=== PATIENT | female | born 1970 ===

== ENCOUNTER 2017-11-02 06:20 | Observation (INO) | payer BC, MEDICAID ==
[2017-10-14 11:45] VITALS: BMI 28.3
[2017-11-02] MEDS ORDERED: Midazolam 2 MG/2 ML VIAL ONE (07:38)
[2017-11-02] MEDS ORDERED: Propofol 10 mg/ml Inj (20 ML) ONE ×3 (07:38→09:04)
[2017-11-02] MEDS ORDERED: ceFAZolin IV 1 gm in Dextrose 0 GM/0 ML BAG IVPB ONE (07:41)
[2017-11-02] MEDS ORDERED: Thrombin Topical 5,000 Int Units Spray Kit ONE (07:42)
[2017-11-02] MEDS ORDERED: Bupivacaine HCl 0.25% PF (10 ml) Inj ONE (07:42)
[2017-11-02] MEDS ORDERED: Lidocaine 2% w Epi 1:100,000 Inj IJ ONE (07:42)
[2017-11-02] MEDS ORDERED: Lactated Ringer's 1,000 ML IV ONE ×2 (07:45→10:28)
[2017-11-02] MEDS ORDERED: ceFAZolin IV 2 gm in Dextrose 2 GM/50 ML BAG IVPB ONE (07:53)
[2017-11-02] MEDS ORDERED: Absorbable Gelatin Sponge Size 100 ONE (08:23)
[2017-11-02] MEDS ORDERED: Absorbable Gelatin Sponge Size 12-7 ONE (09:34)
[2017-11-02] MEDS ORDERED: Morphine 4 MG/ML VIAL ONE ×2 (09:37→09:45)
[2017-11-02] MEDS ORDERED: Succinylcholine Chloride 20 mg/ml Syr (5 ml) IV ONE (09:51)
[2017-11-02] MEDS ORDERED: Oxycodone/Acetaminophen 5/325 mg Tab PO PRN (11:04)
--- NOTE | 2017-11-02 11:12 | PCM.SURG1 ---
Surgeon's Initial Post Op Note - Surgeon's Notes Surgeon: Kenroy River Expedition Guide: PGY4 Type of Anesthesia: General Endo, Local Pre-Operative Diagnosis: Thyroid nodule Operative Findings: see op note Post-Operative Diagnosis: Thyroid nodule Operation Performed: 1. Completion thyroidectomy. 2. Revision of scar Specimen/Specimens Removed: 1. Thyroid. 2. Scar Estimated Blood Loss: EBL {In ML}: 10 Blood Products Given: N/A Drains Used: Lorenzo Post-Op Condition: Good Date of Surgery/Procedure: 11/02/17 Time of Surgery/Procedure: 07:45
[2017-11-02] MEDS ORDERED: ceFAZolin IV 1 gm in Dextrose 1 GM/50 ML BAG IVPB SCH (11:15)
[2017-11-02] MEDS: ceFAZolin IV 1 gm in Dextrose 1 GM/50 ML BAG IVPB SCH (18:00)
--- NOTE | 2017-11-02 21:09 | OP ---
PROCEDURE DATE: 11/02/2017 PREOPERATIVE DIAGNOSES: Right thyroid nodules, status post left hemithyroidectomy. POSTOPERATIVE DIAGNOSES: Right thyroid nodules, status post left hemithyroidectomy. PROCEDURE DONE: 1. Completion right thyroid lobectomy. 2. Revision of scar, approximately 8 x 2 cm size. 3. Intraoperative nerve monitoring. SURGEON: Procedure was done by Landry gallagher MD. LAY OUT INSPECTOR: Ej Kim DO, PGY-4 resident and MILLI Bojorquez. TYPE OF ANESTHESIA: General endotracheal tube anesthesia. ESTIMATED BLOOD LOSS: Around 10 mL. DRAIN: A 15-Lao Lorenzo drain was placed. COMPLICATIONS: None. INTRAOPERATIVE FINDINGS: The patient had multinodular right thyroid lobe and the left side of the thyroid bed was explored and there was no thyroid nodule identified in the previously operated place superficially. DESCRIPTION OF PROCEDURE: On the intraoperative steps, this 47-year-old female was diagnosed with thyroid nodule of right thyroid lobe and the patient was consented for the completion thyroidectomy with intraoperative nerve monitoring. The patient was brought to the OR, placed supine on the operating table. After the induction of the anesthesia, the neck and upper chest were prepped and draped in the usual sterile fashion. The elliptical incision was made surrounding the previous incision and the scar was revised and it was sent off the table for the pathology. Now, the platysma flap was created upper and lower superiorly up to the thyroid notch and inferiorly up to the sternal notch and the strap muscles were divided in the midline and first the strap muscles were retracted laterally. The superior pole dissection was done and the cricothyroid muscles and the superior pole was dissected and superior pole was taken down in 2 different pedicles and the thyroid lobe was mobilized medially and the middle thyroid vein was divided and the inferior thyroid artery identified and the recurrent laryngeal nerve was also identified. The superior and inferior parathyroid gland was also identified and intraoperative nerve monitoring was done. The inferior thyroid vein was divided and inferior thyroid artery was divided after recurrent laryngeal nerve identification and now the thyroid was completely excised from the underlying trachea and it was sent off the table for the pathology. There was proper hemostasis in each and every part of the procedure. The 15-Lao Lorenzo drain was placed. Strap muscles were approximated and the platysma was approximated with 2-0 Vicryl, skin with 4-0 Monocryl and dry sterile dressing was applied. The patient tolerated the procedure well. Count of the instrument and gauze was correct. There was no apparent complication. Landry Jasmine MD
[2017-11-02] MEDS ORDERED: (Novolin R) Insulin Human Regular 100 units/ml vial IV ONE (21:59)
[2017-11-03] MEDS: ceFAZolin IV 1 gm in Dextrose 1 GM/50 ML BAG IVPB SCH (01:06)
[2017-11-03 01:49] VITALS: O2SAT 97
[2017-11-03 06:50] LABS: ALB/GLOB RATIO 1.2 (1.0-2.1); ALBUMIN 3.8 g/dL (3.5-5.0); ALT/SGPT 41 U/L (9-52); AST/SGOT 27 U/L (14-36); BLOOD UREA NITROGEN 11 mg/dL (7-17); CALCIUM 8.5 mg/dl (8.6-10.4); GFR AFRICAN-AMERICAN > 60; GFR NON-AFRICAN AMERICAN > 60
[2017-11-03 07:25] LABS: BASO % 0.1 % (0.0-2.0); HEMOGLOBIN 12.4 g/dL (11.0-16.0); LYMPH # 1.7 K/uL (1.0-4.3); LYMPH % 14.6 % (20.0-40.0); MEAN CELL VOLUME 84.8 fL (81.0-99.0); MEAN CORPUSCULAR HEMOGLOBIN 29.5 pg (27.0-31.0); MEAN CORPUSCULAR HGB CONC 34.8 g/dL (33.0-37.0); MEAN PLATELET VOLUME 8.2 fL (7.2-11.7); MONO # 0.7 K/uL (0.0-0.8); MONO % 6.5 % (0.0-10.0); NEUT # 9.1 K/uL (1.8-7.0); NEUT % 78.8 % (50.0-75.0); NRBC % 0.1 % (0.0-2.0); RBC 4.19 Mil/uL (3.80-5.20); RED CELL DISTRIBUTION WIDTH 13.8 % (11.5-14.5)
[2017-11-03] MEDS: (Novolin R) Insulin Human Regular 100 units/ml vial SC SCH ×2 (07:37→11:35)
[2017-11-03 07:46] LABS: WHITE BLOOD COUNT 11.5 K/uL (4.8-10.8)
[2017-11-03 08:26] VITALS: BP 119/68; PULSE 60; RESP 18; TEMP 95.8
--- NOTE | 2017-11-03 09:53 | CP.PCM.DIS ---
Provider - Provider Date of Admission: 11/02/17 06:20 Attending physician: Landry Jasmine MD Time Spent in preparation of Discharge (in minutes): 45 Hospital Course - Lab Results Lab Results: Most Recent Lab Values WBC 11.5 K/uL (4.8-10.8) H D 11/03/17 06:11 RBC 4.19 Mil/uL (3.80-5.20) 11/03/17 06:11 Hgb 12.4 g/dL (11.0-16.0) 11/03/17 06:11 Hct 35.5 % (34.0-47.0) 11/03/17 06:11 MCV 84.8 fL (81.0-99.0) 11/03/17 06:11 MCH 29.5 pg (27.0-31.0) 11/03/17 06:11 MCHC 34.8 g/dL (33.0-37.0) 11/03/17 06:11 RDW 13.8 % (11.5-14.5) 11/03/17 06:11 Plt Count 271 K/uL (130-400) 11/03/17 06:11 MPV 8.2 fL (7.2-11.7) 11/03/17 06:11 Neut % (Auto) 78.8 % (50.0-75.0) H 11/03/17 06:11 Lymph % (Auto) 14.6 % (20.0-40.0) L 11/03/17 06:11 Gosper % (Auto) 6.5 % (0.0-10.0) 11/03/17 06:11 Eos % (Auto) 0.0 % (0.0-4.0) 11/03/17 06:11 Baso % (Auto) 0.1 % (0.0-2.0) 11/03/17 06:11 Neut # 9.1 K/uL (1.8-7.0) H 11/03/17 06:11 Lymph # 1.7 K/uL (1.0-4.3) 11/03/17 06:11 Gosper # 0.7 K/uL (0.0-0.8) 11/03/17 06:11 Eos # 0.0 K/uL (0.0-0.7) 11/03/17 06:11 Baso # 0.0 K/uL (0.0-0.2) 11/03/17 06:11 Sodium 135 mmol/L (132-148) 11/03/17 06:11 Potassium 3.6 mmol/L (3.6-5.2) 11/03/17 06:11 Chloride 97 mmol/L (98-107) L 11/03/17 06:11 Carbon Dioxide 29 mmol/L (22-30) 11/03/17 06:11 Anion Gap 13 (10-20) 11/03/17 06:11 BUN 11 mg/dL (7-17) 11/03/17 06:11 Creatinine 0.6 mg/dL (0.7-1.2) L 11/03/17 06:11 Est GFR ( Amer) > 60 11/03/17 06:11 Est GFR (Non-Af Amer) > 60 11/03/17 06:11 POC Glucose (mg/dL) 92 mg/dL (65-110) 11/03/17 06:17 Random Glucose 103 mg/dL (65-105) 11/03/17 06:11 Calcium 8.5 mg/dl (8.6-10.4) L 11/03/17 06:11 Total Bilirubin 0.8 mg/dL (0.2-1.3) 11/03/17 06:11 AST 27 U/L (14-36) 11/03/17 06:11 ALT 41 U/L (9-52) 11/03/17 06:11 Alkaline Phosphatase 56 U/L (38-126) 11/03/17 06:11 Total Protein 7.0 g/dL (6.3-8.3) 11/03/17 06:11 Albumin 3.8 g/dL (3.5-5.0) 11/03/17 06:11 Globulin 3.1 gm/dL (2.2-3.9) 11/03/17 06:11 Albumin/Globulin Ratio 1.2 (1.0-2.1) 11/03/17 06:11 Blood Type B POSITIVE 11/02/17 07:00 Antibody Screen Negative 11/02/17 07:00 - Hospital Course Hospital Course: 47 F w HO thyroid nodule came to SDS for thyroidectomy. Pt tolerated the procedure well. Following day, pain controlled. No bleeding noted. Drain output was minimal. Denies F/C/N/V/D/CP/SOB/dizziness. Labs were wnl. Pt is cleared to go home. Discharge Exam - Head Exam Head Exam: ATRAUMATIC, NORMAL INSPECTION, NORMOCEPHALIC - Eye Exam Eye Exam: EOMI, Normal appearance, PERRL Pupil Exam: NORMAL ACCOMODATION, PERRL - ENT Exam ENT Exam: Mucous Membranes Moist - Neck Exam Neck exam: Tenderness Additional comments: Dressing C/D/I. Drain in place: 10cc SS. - Respiratory Exam Respiratory Exam: UNREMARKABLE - Cardiovascular Exam Cardiovascular Exam: REGULAR RHYTHM - GI/Abdominal Exam GI & Abdominal Exam: Normal Bowel Sounds - Back Exam Back exam: NORMAL INSPECTION - Neurological Exam Neurological exam: Alert, CN II-XII Intact, Normal Gait, Oriented x3, Reflexes Normal - Psychiatric Exam Psychiatric exam: Normal Affect, Normal Mood - Skin Skin Exam: Dry, Intact, Normal Color, Warm Discharge Plan - Follow Up Plan Condition: GOOD Disposition: HOME/ ROUTINE Instructions: Total Thyroidectomy (DC) Additional Instructions: follow up at Dr. Jasmine's office in 1-2 weeks. Ok to shower in 2 days. Resume regular diet.
[2017-11-04] MEDS ORDERED: Influenza Vaccine 60 mcg/0.5 mL SYR (4YR UP) IM ONE (10:00)
== END 2017-11-03 14:05 | disposition home or self-care (01) ==
LOC: UNDOADMOB 06:20 → INTOOBSV 06:20 → C.9S 06:20 → EDSTATUS 08:00 → C.9S 11:05 → C.6T 13:53 → UNDODISOB 11-03 14:05
PROVIDERS: ADMIT Surgery Surgical Critical Care; ATTEND Surgery Surgical Critical Care
DX: E04.2 Nontoxic multinodular goiter (principal)
CPT/HCPCS: 36415; 60225; 80053; 82948; 85025; 86850; 86900; 88305; 88307; G0378; J0690; J1100; J1170; J2250; J2270; J2405; J2704; J3010; J7120

== ENCOUNTER 2018-05-20 13:55 | Emergency (ER) | payer BC, MEDICAID ==
[2018-05-20 13:56] VITALS: BMI 28.3
[2018-05-20 14:23] VITALS: BP 122/77; PULSE 68; RESP 18; TEMP 97.8; O2SAT 98
--- NOTE | 2018-05-20 14:45 | RAD ---
Date of service: 05/20/2018 PROCEDURE: Left Knee Radiographs. HISTORY: Pain. COMPARISON: None. FINDINGS: BONES: No fracture. Osteophytosis present JOINTS: Moderate osteoarthritis. JOINT EFFUSION: Small effusion probable OTHER FINDINGS: None. IMPRESSION: Moderate osteoarthrosis. Probable small effusion No fracture or lytic lesion appreciated.
--- NOTE | 2018-05-20 15:11 | C.PDOC ---
History Of Present Illness 48-year-old female presents to the ED complaining of a 1 week history of left knee pain radiating down to the heel. She admits to working out at the gym. Patient denies any direct injury but reports hearing a click when she walks. Pain worsens with weight bearing. Otherwise patient denies weakness, numbness, or tingling. Time Seen by Provider: 05/20/18 14:30 Chief Complaint (Nursing): Lower Extremity Problem/Injury History Per: Patient History/Exam Limitations: no limitations Onset/Duration Of Symptoms: Days Current Symptoms Are (Timing): Still Present Past Medical History Reviewed: Historical Data, Nursing Documentation, Vital Signs Vital Signs: Last Vital Signs Temp 97.8 F 05/20/18 14:00 Pulse 68 05/20/18 14:00 Resp 18 05/20/18 14:00 BP 122/77 05/20/18 14:00 Pulse Ox 98 05/20/18 15:32 - Medical History PMH: HTN, Hyperthyroidism, Hypothyroidism Denies: Colonic Polyps, Fractures, Chronic Kidney Disease, TIA Surgical History: Denies: Endoscopy - [facility] Procedures DX ULTRASOUND-HEAD/NECK (05/24/15) PERCUTAN NEEDLE BX OF THYROID GLAND (05/24/15) Family History: States: No Known Family Hx - Social History Hx Alcohol Use: No Hx Substance Use: No - Immunization History Hx Tetanus Toxoid Vaccination: No Hx Influenza Vaccination: No Hx Pneumococcal Vaccination: No Review Of Systems Except As Marked, All Systems Reviewed And Found Negative. Constitutional: Negative for: Fever Musculoskeletal: Positive for: Leg Pain (left knee pain) Skin: Negative for: Lesions, Bruising Neurological: Negative for: Weakness, Numbness, Incoordination Physical Exam - Physical Exam Appears: Well, Non-toxic, No Acute Distress Skin: Warm, Dry, No Rash Head: Atraumatic, Normacephalic Eye(s): bilateral: Normal Inspection Oral Mucosa: Moist Neck: Normal ROM Extremity: Normal ROM (with some crepitus noted), Tenderness (to the anterior and lateral aspects of knee), No Calf Tenderness, No Deformity, Swelling (mild suprapatellar swelling at left knee) Pulses: Left Dorsalis Pedis: Normal, Right Dorsalis Pedis: Normal Neurological/Psych: Oriented x3, Normal Speech, Normal Cranial Nerves, Normal Motor, Normal Sensation ED Course And Treatment O2 Sat by Pulse Oximetry: 98 (RA) Pulse Ox Interpretation: Normal - Other Rad X-Ray Left Knee X-Ray: Viewed By Me, Read By Radiologist Interpretation: Accession No. : [id number]. Patient Name / ID : NELLA VIVEROS / [id number]. Exam Date : 05/20/2018 14:36:56 ( Approved ). Study Comment : Sex / Age : F / 48Y. Creator : Danni Rebolledo V. Dictator : Danni Rebolledo V. Secondary English Teacher : Junior Database Administrator : Danni Rebolledo V. Approver2 : Report Date : 05/20/2018 14:44:12. My Comment : . Date of service: 05/20/2018. PROCEDURE: Left Knee Radiographs. HISTORY: Pain. COMPARISON: None. FINDINGS: BONES: No fracture. Osteophytosis present. JOINTS: Moderate osteoarthritis. JOINT EFFUSION: Small effusion probable. OTHER FINDINGS: None. IMPRESSION: Moderate osteoarthrosis. Probable small effusion. No fracture or lytic lesion appreciated. Medical Decision Making Medical Decision Making: Impression: Knee Pain Plan: * x-ray of left knee Progress/Updates: X-ray, viewed by me, is negative for acute fracture or dislocation. Radiologist read xray and reports osteoarthritis. Patient informed of results and given copy of report. Recommend vitamins for bone and health support. Patient remains alert, afebrile, resting comfortably throughout ED stay. Knee immobilizer provided. Patient is stable for discharge home. Disposition Counseled Patient/Family Regarding: Studies Performed, Diagnosis, Need For Followup, Rx Given - Disposition Referrals: Drew Fields MD [Staff Provider] - [facility] [Outside] Disposition: HOME/ ROUTINE Disposition Time: 15:09 Condition: STABLE Additional Instructions: Take Tylenol 500mg or Ibuprofen 600mg to help with pain Follow up with orthopedic if pain persists Prescriptions: Ibuprofen [Motrin] 600 mg PO Q8 #30 tab Instructions: Osteoarthritis (DC) Forms: [employer] [facility] (Maltese) - POA Present On Arrival: None - Clinical Impression Clinical Impression: Arthralgia of knee, left - PA / PRECISION AGRICULTURE TECHNICIAN / Resident Statement MD/DO has reviewed & agrees with the documentation as recorded. - Scribe Statement The provider has reviewed the documentation as recorded by the Scribe (Hannah Barnett) All medical record entries made by the Scribe were at my direction and personally dictated by me. I have reviewed the chart and agree that the record accurately reflects my personal performance of the history, physical exam, medical decision making, and the department course for this patient. I have also personally directed, reviewed, and agree with the discharge instructions and disposition.
== END 2018-05-20 15:17 | disposition home or self-care (01) ==
LOC: C.ER 13:55
DX: M25.562 Pain in left knee (principal)

== ENCOUNTER 2019-03-18 20:40 | Emergency (ER) | payer BC ==
[2019-03-18 20:40] VITALS: BMI 28.3
--- NOTE | 2019-03-18 23:03 | C.PDOC ---
History Of Present Illness 49 y/o female presents to ED complaining of right shoulder pain x2 weeks. States the pain increases with movement. Describes the pain as throbbing and aching, and radiates down to middle arm. She denies neck pain, chest pain, or SOB. Time Seen by Provider: 03/18/19 21:19 Chief Complaint (Nursing): Upper Extremity Problem/Injury History Per: Patient History/Exam Limitations: no limitations Onset/Duration Of Symptoms: Days Current Symptoms Are (Timing): Still Present Past Medical History Reviewed: Historical Data, Nursing Documentation, Vital Signs Vital Signs: Last Vital Signs Temp 97.4 F L 03/18/19 21:36 Pulse 75 03/18/19 21:36 Resp 20 03/18/19 21:36 BP 122/78 03/18/19 21:36 Pulse Ox 98 03/18/19 21:36 Primary Care Provider: Ariana Hill - Medical History PMH: HTN, Hyperthyroidism, Hypothyroidism Denies: Colonic Polyps, Fractures, Chronic Kidney Disease, TIA Surgical History: Denies: Endoscopy - [facility] Procedures DX ULTRASOUND-HEAD/NECK (05/24/15) PERCUTAN NEEDLE BX OF THYROID GLAND (05/24/15) Family History: States: No Known Family Hx - Social History Hx Alcohol Use: No Hx Substance Use: No - Immunization History Hx Tetanus Toxoid Vaccination: No Hx Influenza Vaccination: No Hx Pneumococcal Vaccination: No Review Of Systems Constitutional: Negative for: Fever, Chills, Weakness Cardiovascular: Negative for: Chest Pain, Palpitations Respiratory: Negative for: Cough, Shortness of Breath Musculoskeletal: Positive for: Shoulder Pain (right). Negative for: Neck Pain, Back Pain Neurological: Negative for: Weakness, Numbness, Dizziness Physical Exam - Physical Exam Appears: Non-toxic, No Acute Distress Skin: Warm, Dry, No Rash Head: Atraumatic, Normacephalic Eye(s): bilateral: Normal Inspection Oral Mucosa: Moist Neck: Normal ROM, Supple Extremity: Tenderness (increased pain with passive or active ROM), No Deformity, No Swelling Extremity: Bilateral: Atraumatic, Normal Color And Temperature Neurological/Psych: Oriented x3, Normal Speech, Normal Motor, Normal Sensation ED Course And Treatment O2 Sat by Pulse Oximetry: 98 (RA) Pulse Ox Interpretation: Normal Medical Decision Making Medical Decision Making: Plan: --Toradol --Left Shoulder XR --POC Urine XR showed mild calcific tendonitis and arthritis in AC joint. Patient put on a sling and was counseled on using NSAIDs. Patient will be discharged. Will follow up with orthopedist on 03/22/19. Disposition Counseled Patient/Family Regarding: Studies Performed, Diagnosis, Need For Followup, Rx Given - Disposition Disposition: HOME/ ROUTINE Disposition Time: 23:00 Condition: STABLE Prescriptions: Ibuprofen [Motrin Tab] 800 mg PO TID PRN #21 tab PRN Reason: Pain, Moderate (4-7) Instructions: Osteoarthritis (DC), Calcific Tendonitis of the Shoulder (DC) Forms: [employer] (Kyrgyz), General Discharge Instructions - Clinical Impression Clinical Impression: Arthritis of shoulder region, right, Calcific shoulder tendinitis - PA / SUPERVISOR SEWER SYSTEM / Resident Statement MD/DO has reviewed & agrees with the documentation as recorded. - Scribe Statement The provider has reviewed the documentation as recorded by the Jocelynnibal Arellano All medical record entries made by the Jocelynnibal were at my direction and personally dictated by me. I have reviewed the chart and agree that the record accurately reflects my personal performance of the history, physical exam, medical decision making, and the department course for this patient. I have also personally directed, reviewed, and agree with the discharge instructions and disposition.
[2019-03-18 23:30] VITALS: BP 117/73; PULSE 62; RESP 18; TEMP 97.9
[2019-03-19 00:44] VITALS: O2SAT 98
--- NOTE | 2019-03-19 07:07 | RAD ---
Right shoulder three views HISTORY: Pain. Comparison: None available. Findings: Moderate narrowing of the glenohumeral joint space. Moderate acromioclavicular joint space degenerative changes with subchondral sclerosis and bony hypertrophy. Punctate radiopaque density seen lateral to the acromion on the transscapular Y-view nonspecific. Impression: Degenerative changes. If pain persists, consider correlation with MRI.
== END 2019-03-18 23:30 | disposition home or self-care (01) ==
LOC: C.ER 20:40
DX: M19.011 Primary osteoarthritis, right shoulder (principal); M75.31 Calcific tendinitis of right shoulder
CPT/HCPCS: 73030; 81025; 96372; 99284; J1885